=== PATIENT | female | born 1970 | race Caucasian/White ===

== ENCOUNTER 2019-03-12 22:28 | Emergency (ER) | payer OTHER ==
[~2019-03-12] VITALS: Ht 162.6 cm; Wt 54.4 kg
[~2019-03-12 22:28] MED LIST: LEVSIN0.125 MG PO; PREVACID15 MG PO
[2019-03-13] MEDS ORDERED: HEMATOGEN FORT1 EACH PO (04:51)
[2019-03-13] MEDS ORDERED: KETO10TA2 PO (04:52)
== END 2019-03-13 05:14 | disposition home or self-care (01) ==
LOC: ER 22:28
DX: N93.8 Other specified abnormal uterine and vaginal bleeding (principal)

== ENCOUNTER 2020-02-07 21:17 | Emergency (ER) | payer OTHER ==
[~2020-02-07] VITALS: Ht 152.4 cm; Wt 50.3 kg
[~2020-02-07 21:17] MED LIST changes: +HEMATOGEN FORT1 EACH PO; +KETO10TA2 PO
[2020-02-07] MEDS ORDERED: NORTREL1 EACH (21:26)
[2020-02-08] MEDS ORDERED: NORFLEX100MG PO (10:24)
[2020-02-08] MEDS ORDERED: INTESTINEX680 M1 PO (10:24)
== END 2020-02-08 10:34 | disposition home or self-care (01) ==
LOC: ER 21:17
DX: K29.70 Gastritis, unspecified, without bleeding (principal)

== ENCOUNTER 2023-06-05 16:30 | Emergency (ER) | payer OTHER ==
[~2023-06-05] VITALS: Ht 165.1 cm; Wt 60.8 kg
[~2023-06-05 16:30] MED LIST changes: +INTESTINEX680 M1 PO; +NORFLEX100MG PO; +NORTREL1 EACH
== END 2023-06-05 20:13 | disposition home or self-care (01) ==
LOC: ER 16:30
DX: S09.8XXA Other specified injuries of head, initial encounter (principal); S59.802A Other specified injuries of left elbow, initial encounter; S89.82XA Other specified injuries of left lower leg, initial encounter; W18.39XA Other fall on same level, initial encounter; Y93.89 Activity, other specified; Y92.512 Supermarket, store or market as the place of occurrence of the external cause; Z88.6 Allergy status to analgesic agent; Z88.0 Allergy status to penicillin; Z91.018 Allergy to other foods; S49.82XA Other specified injuries of left shoulder and upper arm, initial encounter